=== PATIENT | male | born 1950 | race Caucasian/White ===

== ENCOUNTER 2021-07-17 15:14 | Emergency (ER) | payer BC, MEDICARE ==
[~2021-07-17] VITALS: Ht 160 cm; Wt 70.3 kg
[2021-07-17] MEDS ORDERED: NALT50TA PO (15:37)
--- NOTE | 2021-07-17 16:01 | NUR ---
Patient discharged to home in stable condition. Written and verbal after care instructions given. Patient verbalizes understanding of instructions. Stressed follow up or return to ER for worsening s/s.
== END 2021-07-17 16:02 | disposition home or self-care (01) ==
LOC: ER 15:14
DX: F10.10 Alcohol abuse, uncomplicated (principal); Z76.0 Encounter for issue of repeat prescription; R03.0 Elevated blood-pressure reading, without diagnosis of hypertension
CPT/HCPCS: A4663